=== PATIENT | female | born 1940 | race Caucasian/White ===

== ENCOUNTER 2021-08-06 13:35 | Emergency (ER) | payer OTHER ==
[~2021-08-06] VITALS: Ht 172.7 cm; Wt 71.7 kg
[2021-08-06 13:53] VITALS: BP 97/70
--- NOTE | 2021-08-06 14:03 | NUR ---
Patient wheelchair assisted to bed 07
[2021-08-06] MEDS ORDERED: DILTIAZEM 25 MG/5 ML VIAL IVP ONE (14:15)
--- NOTE | 2021-08-06 14:20 | NUR ---
81 y/o F BIB daughter c/o chest pain, abdominal pain, N/V/D. Patient A&Ox4, ambulatory, states chest pain to mid chest 5/10, pressure/intermittent, radiating to R breast. Pt also reports SOB x 1 week, nausea and vomiting 10 episodes, diarrhea 10 episodes x 2-3 days. Pt denies dysuria, hematuria, cough, fever, headache, dizziness, sick household members. Pt states unable to take medication. Denies blood thinners, injury. Skin pink/warm/dry. Cap refill <3 seconds. Pt placed onto athletic monitor showing HR 156. Bed locked in lowest position, side rails x 1, call light in reach. PMH: a fib, watchman procedure, Meds: metoprolol, diltiazem NKA Addendum: 08/06/21 at 1622 by MED Medications: Nitroglycerin 0.4, atorvastatin, gabapentin, metropolol, escitalopram, digoxin 125 mcg, trazodone
--- NOTE | 2021-08-06 14:22 | NUR ---
DR RODRIGUEZ AT BEDSIDE EVALUATING PT
[2021-08-06] MEDS ORDERED: NACL 0.9% 1,000 ML IV ONE ×2 (14:25→15:50)
[2021-08-06 14:37] LABS: BASOPHILS % (AUTO) 0.2 % (0.0-2.0); EOSINOPHILS % (AUTO) 0.2 % (0.0-4.0); HEMATOCRIT 39.3 % (36-48); HEMOGLOBIN 12.8 g/dL (12.0-16.0); LYMPHOCYTES # (AUTO) 0.3 K/uL (2.5-16.5); LYMPHOCYTES % (AUTO) 3.7 % (20.5-51.1); MEAN CORPUSCULAR HEMOGLOBIN 29 pg (27-31); MEAN CORPUSCULAR HGB CONC 33 g/dL (33-37); MONOCYTES # (AUTO) 0.2 K/uL (0.8-1.0); MONOCYTES % (AUTO) 2.8 % (1.7-9.3); NEUTROPHILS # (AUTO) 7.3 K/uL (1.8-7.7); NEUTROPHILS % (AUTO) 93.1 % (42.2-75.2); PLATELET COUNT (AUTO) 278 K/uL (140-450); RED BLOOD CELL COUNT(AUTO) 4.42 MIL/uL (4.20-5.40); WHITE BLOOD COUNT (AUTO) 7.8 K/uL (4.8-10.8)
--- NOTE | 2021-08-06 14:38 | NUR ---
RAD AT BEDSIDE
[2021-08-06 14:51] LABS: ALBUMIN 3.7 g/dL (3.4-5.0); ANION GAP 18.2 (8-16); ASPARTATE AMINOTRANSFERASE 27 U/L (15-37); CARBON DIOXIDE 21.6 mmol/L (21-32); CHLORIDE 107 mmol/L (98-107); CREATININE 1.1 mg/dL (0.6-1.3); GLUCOSE 119 mg/dL (74-106); POTASSIUM 4.8 mmol/L (3.5-5.1); SODIUM SERUM 142 mmol/L (136-145); TOTAL BILIRUBIN 0.8 mg/dL (0.0-1.0); UREA NITROGEN, BLOOD 24 mg/dL (7-18)
[2021-08-06 15:10] LABS: CREATINE KINASE MB 1.5 ng/mL (0-3.6)
--- NOTE | 2021-08-06 15:23 | NUR ---
Patient resting in semi-fowlers position with traffic monitor specialist and IVF continued. Daughter remains at bedside. Bed locked in lowest position, side rails x 1, call light in reach.
[2021-08-06] MEDS ORDERED: DICYCLOMINE 10 MG CAP PO ONE (15:50)
--- NOTE | 2021-08-06 16:21 | NUR ---
Patient states + relief to abdominal pain. All pt needs met. Cardiac montior remains in place. HR 115. Bed locked in lowest position, side rails x 1, call light in reach.
[2021-08-06] MEDS ORDERED: METOPROLOL SUCCINATE 50 MG TABER PO ONE (16:45)
--- NOTE | 2021-08-06 17:16 | NUR ---
Patient resting in position of comfort. traffic monitor specialist in place. BP 125/76 HR 119
--- NOTE | 2021-08-06 17:16 | NUR ---
Dr. Trevino is reevaluating pt at bedside
[2021-08-06] MEDS ORDERED: PANTOPRAZOLE 40 MG TABEC PO ONE (17:20)
[2021-08-06] MEDS ORDERED: METO50TA20 PO (17:30)
[2021-08-06] MEDS ORDERED: DIGO0.122 PO ×2 (17:30→18:56)
[2021-08-06] MEDS ORDERED: TRAZ-343 PO (17:30)
[2021-08-06] MEDS ORDERED: GABA100C PO (17:30)
[2021-08-06] MEDS ORDERED: NITR0.4T1 SL (17:30)
[2021-08-06] MEDS ORDERED: ESCI10TA PO (17:30)
--- NOTE | 2021-08-06 17:35 | NUR ---
Patient ambulated to restroom with cane, states she has diarrhea. Urine sample cup provided.
--- NOTE | 2021-08-06 17:40 | NUR ---
Patient ambulated back onto bed 07 and placed onto equipment monitor phototypesetting. Urine sample collected at bedside.
--- NOTE | 2021-08-06 18:09 | NUR ---
Patient reports + relief to abdominal pain. States she still has diarrhea. All pt needs met. [place] provided. Bed locked in lowest position, side rails x 1, call light in reach.
--- NOTE | 2021-08-06 18:38 | NUR ---
Dr. Trevino is reevaluating patient at bedside
[2021-08-06] MEDS ORDERED: DIGOXIN 0.25 MG/ML AMP IV ONE (18:40)
[2021-08-06] MEDS ORDERED: METO50TE2 PO (18:56)
[2021-08-06] MEDS ORDERED: PANT40EC PO (18:57)
[2021-08-06] MEDS ORDERED: BEN10 PO (18:57)
--- NOTE | 2021-08-06 19:12 | NUR ---
Report and transfer of care endorsed to JESSICA Nolasco
--- NOTE | 2021-08-06 19:15 | NUR ---
ASSUMED CARE OF PT. REPORT GIVEN BY DAY SHIFT RN.
[2021-08-06 19:55] VITALS: BP 110/71
--- NOTE | 2021-08-06 20:02 | NUR ---
PT WAITING FOR D/C TRANSPORTATION. PROVIDER CONTACTED FAMILY.
--- NOTE | 2021-08-06 21:11 | NUR ---
Patient discharged with v/s stable. Written and verbal after care instructions given and explained. Patient alert, oriented and verbalized understanding of instructions. Wheel Chair Assisted with by caregiver. All questions addressed prior to discharge. ID band removed. Patient advised to follow up with PMD. Rx of BENTYL, LANOXIN, TOPROL, PROTONIX given. Patient educated on indication of medication including possible reaction and side effects. Opportunity to ask questions provided and answered.
== END 2021-08-06 21:11 | disposition home or self-care (01) ==
LOC: MED 13:35
DX: I48.91 Unspecified atrial fibrillation (principal); R19.7 Diarrhea, unspecified; R11.10 Vomiting, unspecified; R06.02 Shortness of breath; Z79.899 Other long term (current) drug therapy
CPT/HCPCS: 36415; 71045; 80053; 80162; 82550; 82553; 84484; 85025; 93005; 96361; 96374; 96375; 99285; J1160; J3490; J7030; Q0092

== ENCOUNTER 2021-12-13 09:21 | Emergency (ER) | payer OTHER ==
[~2021-12-13] VITALS: Ht 172.7 cm; Wt 74.4 kg
[~2021-12-13 09:21] MED LIST: BEN10 PO; DIGO0.122 PO; ESCI10TA PO; GABA100C PO; METO50TA20 PO; METO50TE2 PO; NITR0.4T1 SL; PANT40EC PO; TRAZ-343 PO
[2021-12-13 09:36] VITALS: BP 137/73
--- NOTE | 2021-12-13 09:50 | NUR ---
PT WAS TAKEN TO BED 1 VIA WHEELCHAIR.
--- NOTE | 2021-12-13 10:10 | NUR ---
MD HOPPER AT PT BEDSIDE FOR FURTHER EVALUATION.
--- NOTE | 2021-12-13 10:42 | NUR ---
BLOOD WALKED TO LAB.
[2021-12-13] MEDS: LIDOCAINE MPF 1% 10 MG/ML VIAL IM ONE ×2 (10:45→11:40)
--- NOTE | 2021-12-13 10:58 | NUR ---
[facility] RAD [facility]
[2021-12-13] MEDS ORDERED: DILTIAZEM 25 MG/5 ML VIAL IVP ONE ×2 (11:00→12:00)
[2021-12-13 11:18] LABS: BASOPHILS % (AUTO) 0.8 % (0.0-2.0); EOSINOPHILS # (AUTO) 0.1 K/uL (0-0.4); EOSINOPHILS % (AUTO) 2.8 % (0.0-4.0); HEMATOCRIT 40.2 % (36-48); HEMOGLOBIN 13.2 g/dL (12.0-16.0); LYMPHOCYTES # (AUTO) 1.1 K/uL (2.5-16.5); LYMPHOCYTES % (AUTO) 22.1 % (20.5-51.1); MEAN CORPUSCULAR HEMOGLOBIN 29 pg (27-31); MEAN CORPUSCULAR HGB CONC 33 g/dL (33-37); MEAN CORPUSCULAR VOLUME 88.9 fL (80-94); MONOCYTES # (AUTO) 0.5 K/uL (0.8-1.0); MONOCYTES % (AUTO) 10.1 % (1.7-9.3); NEUTROPHILS # (AUTO) 3.2 K/uL (1.8-7.7); NEUTROPHILS % (AUTO) 64.2 % (42.2-75.2); PLATELET COUNT (AUTO) 191 K/uL (140-450); RED BLOOD CELL COUNT(AUTO) 4.52 MIL/uL (4.20-5.40); RED CELL DISTRIBUTION WIDTH 16.2 % (11.6-13.7)
[2021-12-13 11:31] LABS: ALBUMIN 3.3 g/dL (3.4-5.0); ASPARTATE AMINOTRANSFERASE 33 U/L (15-37); CARBON DIOXIDE 26.5 mmol/L (21-32); CHLORIDE 108 mmol/L (98-107); CREATININE 1.2 mg/dL (0.6-1.3); GLUCOSE 91 mg/dL (74-106); POTASSIUM 5.5 mmol/L (3.5-5.1); SODIUM SERUM 141 mmol/L (136-145); TOTAL BILIRUBIN 0.6 mg/dL (0.0-1.0); UREA NITROGEN, BLOOD 22 mg/dL (7-18)
--- NOTE | 2021-12-13 13:21 | NUR ---
Provided bedside commode as request.
[2021-12-13] MEDS ORDERED: DILTIAZEM 30 MG TAB PO ONE (13:25)
[2021-12-13] MEDS ORDERED: METO50TE2 PO (13:26)
--- NOTE | 2021-12-13 14:00 | NUR ---
CLEANED PT'S WOUND (FOREHEAD) W/ SALINE AND APPLIED STERI STRIPS. NURSE APPROVED.
[2021-12-13 14:10] VITALS: BP 120/81
--- NOTE | 2021-12-13 14:10 | NUR ---
Patient discharged with v/s stable. Written and verbal after care instructions given and explained. Patient alert, oriented and verbalized understanding of instructions. Ambulatory with steady gait. All questions addressed prior to discharge. ID band removed. Patient advised to follow up with PMD. Rx of METOPROLOL given. Patient educated on indication of medication including possible reaction and side effects. Opportunity to ask questions provided and answered.
== END 2021-12-13 14:10 | disposition home or self-care (01) ==
LOC: MED 09:21
DX: S01.81XA Laceration without foreign body of other part of head, initial encounter (principal); S50.01XA Contusion of right elbow, initial encounter; S80.01XA Contusion of right knee, initial encounter; I48.91 Unspecified atrial fibrillation; I25.2 Old myocardial infarction; I10 Essential (primary) hypertension; Z79.899 Other long term (current) drug therapy; W19.XXXA Unspecified fall, initial encounter; Y93.89 Activity, other specified; Y92.89 Other specified places as the place of occurrence of the external cause; Y99.8 Other external cause status
CPT/HCPCS: 36415; 70450; 71045; 72125; 73080; 73562; 80053; 83880; 84484; 85025; 90471; 90715; 93005; 96374; 99291; J3490; 99285; J2001